=== PATIENT | male | born 1950 | race Caucasian/White ===

== ENCOUNTER 2016-10-05 08:55 | Day surgery (SDC) | payer MEDICARE, BC ==
[~2016-10-05 08:55] MED LIST: LIDOCAINE HCL 1% MPF SOL ONE; PROPOFOL 500 MG/50 ML EMU IV ONE
[2016-10-05] MEDS ORDERED: ONDANSETRON HCL 4 MG/2 ML SOL ONE (10:26)
[2016-10-05 11:29] VITALS: BP 129/86; PULSE 67; RESP 18; TEMP 974; O2SAT 97
== END 2016-10-05 11:51 | disposition home or self-care (01) | DRG 951 ==
LOC: SURG 08:55
PROVIDERS: ATTEND Surgery
DX: Z12.11 Encounter for screening for malignant neoplasm of colon (principal); K62.1 Rectal polyp; Z86.010 Personal history of colon polyps; R05 Cough; Z80.0 Family history of malignant neoplasm of digestive organs
CPT/HCPCS: J2405; J2001; J2704

== ENCOUNTER 2017-04-10 05:56 | Emergency (ER) | payer MEDICARE, BC ==
[2017-04-10 06:08] VITALS: RESP 18; TEMP 96.9
[2017-04-10] MEDS: ALBUTEROL/IPRATROPIUM 1 VIAL SOL INH ONE (06:14)
[2017-04-10] MEDS ORDERED: ALBUTEROL/IPRATROPIUM 1 VIAL SOL ONE (06:16)
[2017-04-10 06:37] LABS: BASOPHILS % (AUTO) 2 % (0-3); EOSINOPHILS % (AUTO) 6 % (0-9); HEMATOCRIT 42 % (39-53); MEAN CORPUSCULAR VOLUME 86 fL (80-100); MONOCYTES % (AUTO) 9.1 % (0-12); NEUTROPHILS % (AUTO) 66.3 % (37-80)
[2017-04-10 06:40] LABS: CALCIUM 9.1 mg/dl (8.5-10.1)
[2017-04-10] MEDS ORDERED: SOLUMEDROL 125 MG/2 ML 125 MG/2 ML PDS ONE (07:42)
[2017-04-10] MEDS: SOLUMEDROL 125 MG/2 ML 125 MG/2 ML PDS IM ONE (07:47)
[2017-04-10 08:05] VITALS: BP 158/100; PULSE 63; O2SAT 99
== END 2017-04-10 08:00 | disposition home or self-care (01) | DRG 203 ==
LOC: ED 05:56
DX: J20.9 Acute bronchitis, unspecified (principal)
CPT/HCPCS: 36415; 71020; 80048; 85025; 99285; J2930; J7620

== ENCOUNTER 2018-06-20 16:26 | Emergency (ER) | payer MEDICARE, OTHER, BC ==
[2018-06-20 16:38] VITALS: TEMP 97.7
[2018-06-20 18:25] VITALS: BP 147/83; RESP 20; O2SAT 99
[2018-06-20 18:27] VITALS: PULSE 64
== END 2018-06-20 17:50 | disposition home or self-care (01) | DRG 153 ==
LOC: ED 16:26
DX: J06.9 Acute upper respiratory infection, unspecified (principal); R06.02 Shortness of breath
CPT/HCPCS: 71045; 99282; 99283

== ENCOUNTER 2019-01-17 17:28 | Emergency (ER) | payer MEDICARE, BC, OTHER ==
[2019-01-17] MEDS ORDERED: SODIUM CHLORIDE 0.9% 1000ML 1,000 ML IV ONE (17:39)
[2019-01-17 17:44] LABS: BASOPHILS % (AUTO) 1 % (0-3); EOSINOPHILS % (AUTO) 5 % (0-9); HEMATOCRIT 45 % (39-53); HEMOGLOBIN 15.1 gm/dl (13.5-17.7); LYMPHOCYTES % (AUTO) 28.2 % (10-50); MEAN CORPUSCULAR HEMOGLOBIN 31.1 pg (27.0-32.0); MEAN CORPUSCULAR HGB CONC 33.4 gm/dl (32.0-36.0); MEAN CORPUSCULAR VOLUME 93 fL (80-100); MONOCYTES % (AUTO) 8.1 % (0-12); NEUTROPHILS % (AUTO) 57.7 % (37-80)
[2019-01-17 17:50] VITALS: TEMP 97.8
[2019-01-17 18:01] LABS: ALBUMIN 3.9 gm/dl (3.4-5.0); ALKALINE PHOSPHATASE 59 IU/L (46-116); ALT 29 IU/L (14-63); AST 19 IU/L (15-37); BILIRUBIN,TOTAL 1.1 mg/dl (0.2-1.0); BLOOD UREA NITROGEN 17 mg/dl (7-18); CARBON DIOXIDE 24.2 mEq/L (21-32); CHLORIDE 102 mMol/L (98-107); CREATININE 1.19 mg/dl (0.80-1.30); GLUCOSE 111 mg/dl (74-106); TROP I < 0.017 ng/ml (0.000-0.056)
[2019-01-17] MEDS ORDERED: ASPIRIN 81 MG CHEWABLE CTB ONE (18:12)
[2019-01-17 19:02] VITALS: BP 135/91; PULSE 82; RESP 18; O2SAT 95
[2019-01-18] MEDS ORDERED: ASPIRIN EC 81 MG PO SCH (09:00)
== END 2019-01-17 18:33 | disposition home or self-care (01) | DRG 312 ==
LOC: ED 17:28
DX: R55 Syncope and collapse (principal); E86.0 Dehydration; R42 Dizziness and giddiness; T67.1XXA Heat syncope, initial encounter; R06.02 Shortness of breath
CPT/HCPCS: 71045; 80053; 83880; 84484; 85025; 93005; 96365; 99284